=== PATIENT | female | born 1960 | race Caucasian/White ===

== ENCOUNTER → 2016-10-11 | Outpatient (CLI) | payer BC | END | disposition home or self-care (01) | LOC: LAB.O 07:15 | PROVIDERS: ATTEND Internal Medicine Interventional Cardiology | DX: R07.9 Chest pain, unspecified (principal); R06.02 Shortness of breath ==

== ENCOUNTER → 2017-01-18 | Outpatient (CLI) | payer BC | END | disposition home or self-care (01) | LOC: LAB.O 07:14 | PROVIDERS: ATTEND Internal Medicine Interventional Cardiology | DX: E78.5 Hyperlipidemia, unspecified (principal) ==

== ENCOUNTER → 2017-11-28 | Outpatient (CLI) | payer BC | LOC: LAB.O 11:38 | PROVIDERS: ATTEND Nurse Practitioner Family | DX: R60.0 Localized edema (principal); I10 Essential (primary) hypertension ==

== ENCOUNTER → 2017-12-02 | Outpatient (CLI) | payer BC ==
--- NOTE | 2017-12-02 16:51 | US ---
EXAM DESCRIPTION: Renal CLINICAL HISTORY: 57 years Female, Chronic kidney disease COMPARISON: None. TECHNIQUE: Retroperitoneal sonogram was performed to evaluate the kidneys and bladder. FINDINGS: Right kidney Right renal length is 9.8 cm. Renal cortical thickness is normal but echogenicity is increased consistent with chronic renal parenchymal disease. No right renal mass, cyst or shadowing stone. No hydronephrosis. Left kidney Left renal length is 9.9 cm. Renal cortical thickness is normal but there is increased echogenicity consistent with chronic renal parenchymal disease. Sonolucent pyramids are prominent. A small cyst in the central superior left kidney measures 8 mm. This has a benign appearance. No left renal mass or shadowing stone. No hydronephrosis. Urinary bladder Images of the bladder were not obtained for this study. IMPRESSION: Hyperechoic kidneys of normal size with no hydronephrosis. Small left parapelvic renal cyst. Electronically signed by: Emerson Tavarez MD 12/02/2017 4:50 PM CDT
== END ==
LOC: US 13:43
PROVIDERS: ATTEND Internal Medicine Nephrology
DX: N18.4 Chronic kidney disease, stage 4 (severe) (principal); N28.1 Cyst of kidney, acquired

== ENCOUNTER → 2017-12-09 | Outpatient (CLI) | payer BC | LOC: LAB.NP 09:20 | PROVIDERS: ATTEND Internal Medicine Nephrology | DX: N18.4 Chronic kidney disease, stage 4 (severe) (principal) ==

== ENCOUNTER 2017-12-20 10:25 | Inpatient (IN) | payer BC ==
[2017-12-20] MEDS ORDERED: LEVALBUTEROL NEBS 1.25 MG/3 ML VIAL NEB ONE (10:36)
--- NOTE | 2017-12-20 10:38 | ED.PDOC ---
History of Present Illness - General Chief Complaint: Respiratory Problem Stated Complaint: shortness of breath Time Seen by Provider: 12/20/17 10:32 Source: patient Exam Limitations: no limitations - History of Present Illness Comments: Leatha Morgan 57 y/o female stated that she had productive cough the last 2 weeks and nasal congestion. and feels not getting better.Continue to smoke 1ppd and stated had not smoke the last one week.No fever ,no chills but with SOB.Seen primary Md yesterday CXR taken-result unknown to patient. Timing/Duration: week - 2 Cough Quality/Degree: productive cough Possible Cause: occasional episodes Improving Factors: nothing Worsening Factors: nothing Associated Symptoms: shortness of breath Respiratory Risk Factors: other - smoking Allergies/Adverse Reactions: Allergies NO KNOWN ALLERGY Allergy (Verified 12/20/17 10:38) Home Medications: Ambulatory Orders Amlodipine Besylate 10 mg PO BEDTIME 12/20/17 Aripiprazole [Abilify] 10 mg PO DAILY 12/20/17 Atorvastatin Calcium [Lipitor] 20 mg PO BEDTIME 12/20/17 Clonidine HCl 0.2 mg PO PRN 12/20/17 Diltiazem HCl 90 mg PO BID 12/20/17 Duloxetine HCl 90 mg PO DAILY 12/20/17 Losartan Potassium 50 mg PO DAILY 12/20/17 Review of Systems - Review of Systems Constitutional: States: no symptoms reported EENTM: States: nose congestion Respiratory: States: see HPI Cardiology: States: no symptoms reported Gastrointestinal/Abdominal: States: no symptoms reported Genitourinary: States: no symptoms reported Musculoskeletal: States: no symptoms reported Skin: States: no symptoms reported Neurological: States: no symptoms reported Endocrine: States: no symptoms reported Past Medical History (General) - Patient Medical History Hx Hypertension: Yes Hx Other PMH: Yes - chronic kidney disease -followed up by mud mixer- Dr. Akers Surgical History: other - craniotomy for Arnold-Chiari - Vaccination History Immunizations Up to Date: No - Social History Hx Tobacco Use: Yes - cigarrettes Years Tobacco Use: 7 Cigarettes Packs Per Day: 20 Family Medical History - Family History Mother Family History: Unknown Living Status: Unknown Hx Family Asthma: Yes - copd-mom Hx Family Stroke: Yes - dad Physical Exam - Physical Exam General Appearance: Alert, Comfortable, No apparent distress Eye Exam: bilateral normal ENT Exam: normal ENT inspection, hearing grossly normal, pharynx normal, nasal congestion Neck: non-tender, full range of motion, supple, normal inspection, trachea midline Respiratory: chest non-tender, no respiratory distress, accessory muscle use, rales, wheezing, other - speaks in full sentences Cardiovascular/Chest: normal peripheral pulses, regular rate, rhythm, no murmur Gastrointestinal/Abdominal: soft, tenderness - epigasrtium chronic nol peritoneal signs Extremity: no pedal edema, no calf tenderness Neurologic: alert, oriented x 3 Skin Exam: normal color, warm/dry Lymphatic: no adenopathy Progress - Progress Progress: 12/20/17 10:56 12/20/17 10:36 B-TYPE NATRIURETIC PEPTIDE/BNP Stat CARDIAC PANEL,ER Stat LACTIC ACID Stat SVN/Updraft Therapy .ONCE Chest,1 View [RAD] Stat URINALYSIS Stat 12/21/17 09:00 [facility] Daily - Results/Orders Results/Orders: 12/20/17 10:36 SVN/Updraft Therapy .ONCE 12/20/17 11:48 SPUTUM CULTURE Stat 12/20/17 11:50 Sputum PRN 12/20/17 12:05 BLOOD CULTURE Stat 12/20/17 12:28 Azithromycin IV [Zithromax IV] 500 mg Sodium Chloride 0.9% 250Ml [NS 250ml] 250 ml IVPB ONCE 12/21/17 09:00 [facility] Daily Laboratory Results - last 24 hr 12/20/17 12/20/17 12/20/17 10:50 11:38 Unknown WBC 17.8 H RBC 3.36 L Hgb 11.3 L Hct 33.2 L MCV 98.9 MCH 33.6 H MCHC 34.1 RDW 13.3 Plt Count 517 H MPV 7.7 Absolute Neuts (auto) 10.80 H Absolute Lymphs (auto) 5.10 H Absolute Monos (auto) 1.20 H Absolute Eos (auto) 0.40 Absolute Basos (auto) 0.20 H Neutrophils % 60.8 Lymphocytes % 28.9 Monocytes % 6.9 Eosinophils % 2.4 Basophils % 1.0 PT 9.0 INR 0.90 PTT (SP) 23.9 Sodium 133 L Potassium 4.5 Chloride 101 Carbon Dioxide 19 L Anion Gap 17.5 BUN 27 H Creatinine 2.84 H BUN/Creatinine Ratio 9.5 L Random Glucose 191 H Serum Osmolality 276.6 Lactic Acid 1.8 Calcium 8.8 Magnesium 2.3 Creatine Kinase 82 CK-MB (CK-2) 5.3 H* CK-MB (CK-2) % Not Reportable Troponin I 0.03 B-Natriuretic Peptide 154.0 H Urine Color Yellow Urine Appearance Cloudy Urine pH 7.0 Ur Specific [place] 1.020 Urine Protein >=300 H Urine Glucose (UA) 100 H Urine Ketones Negative Urine Blood Large H Urine Nitrite Negative Urine Bilirubin Negative Urine Urobilinogen 0.2 Ur Leukocyte Esterase Negative Urine RBC 30-40 H Urine WBC 0 Ur Epithelial Cells 1-3 Urine Bacteria Rare - EKG/XRAY/CT XRAY: chest - left basilar infiltrate Departure - Departure Clinical Impression: Hypoxemia Pneumonia Qualifiers: Pneumonia type: due to unspecified organism Laterality: left Lung location: lower lobe of lung Qualified Code(s): J18.1 - Lobar pneumonia, unspecified organism Chronic kidney disease Qualifiers: Chronic kidney disease stage: stage 3 (moderate) Qualified Code(s): N18.3 - Chronic kidney disease, stage 3 (moderate) Hematuria Qualifiers: Hematuria type: other microscopic Qualified Code(s): R31.29 - Other microscopic hematuria; R31.2 - Other microscopic hematuria Time of Disposition: 13:08 Disposition: Admit Patient Condition: Fair Departure Forms: Patient Portal Self Enrollment Referrals: Kenna Burch NP [Primary Care Provider] - 1-2 Weeks Home Medications: Ambulatory Orders Amlodipine Besylate 10 mg PO BEDTIME 12/20/17 Aripiprazole [Abilify] 10 mg PO DAILY 12/20/17 Atorvastatin Calcium [Lipitor] 20 mg PO BEDTIME 12/20/17 Clonidine HCl 0.2 mg PO PRN 12/20/17 Diltiazem HCl 90 mg PO BID 12/20/17 Duloxetine HCl 90 mg PO DAILY 12/20/17 Losartan Potassium 50 mg PO DAILY 12/20/17 Decision To Admit - Decistion To Admit Decision to Admit Reason: Admit from ER Decision to Admit Date: 12/20/17 Decision to Admit Time: 13:09 - D/W Fior Hidalgo -SANJAY/Hospitalist
[2017-12-20] MEDS ORDERED: methylPREDNISolone SODIUM SUC 125 MG/2 ML VIAL IV ONE (10:47)
[2017-12-20] MEDS ORDERED: SODIUM CHLORIDE 0.9% 1000ML 1,000 ML IVS ONE ×2 (10:56→16:45)
--- NOTE | 2017-12-20 11:02 | RAD ---
Procedure: XR CHEST 1 VIEW Exam Date: 12/20/2017 Ordering Provider: Manuel Addison Clinical Indication: cough Comparison: None Findings: Cardiomediastinal silhouette is within normal limits. Left basilar subsegmental atelectasis and/or infiltrate. No significant pleural effusion. No pneumothorax. No acute osseous abnormality. Scoliosis. Impression: 1. Left basilar subsegmental atelectasis and/or infiltrate. Electronically signed by: Francesco Smalls MD 12/20/2017 11:01 AM CDT
[2017-12-20] MEDS ORDERED: IPRATROPIUM/ALBUTEROL 3 ML VIAL NEB ONE (11:38)
[2017-12-20] MEDS ORDERED: cefTRIAXone SODIUM 1 GM in SODIUM CHL 0.9% 50ML MIN-BAG+ 50 ML IVPB ONE (12:28)
[2017-12-20] MEDS ORDERED: AZITHROMYCIN IV 500 MG in SODIUM CHLORIDE 0.9% 250ML 250 ML IVPB ONE (12:28)
[2017-12-20] MEDS ORDERED: SODIUM CHL 0.9% 50ML MIN-BAG+ 50 ML IVPB ONE (12:34)
[2017-12-20] MEDS ORDERED: cefTRIAXone SODIUM 1 GM VIAL ONE (12:34)
[2017-12-20] MEDS ORDERED: SODIUM CHLORIDE 0.9% 250ML 250 ML ONE (13:14)
[2017-12-20] MEDS ORDERED: AZITHROMYCIN IV 500 MG VIAL IVPB ONE (13:14)
--- NOTE | 2017-12-20 14:06 | HP ---
SUPERVISING PHYSICIAN: Sebastian Donahue M.D. CHIEF COMPLAINT: Shortness of breath. HISTORY OF PRESENT ILLNESS: This is a 57 year-old female patient who has had approximately a 1 to 2 week history of a cold. She had a runny nose and a productive cough producing white foamy sputum. She has actually been treated as an outpatient over the last week or so. She received a ProAir inhaler. She has also had some adjustments done by Dr. Reza, her facility attendant, on her antihypertensives. Today, it had worsened some and she actually went to try to take a bath, and she became so short of breath that she called 911. While she was short of breath she also had a panic attack and she has a fairly significant history of anxiety and depression. She was brought to the Emergency Room. In the Emergency Room, she presented with a temperature of 98, pulse rate 131, blood pressure 150/88, respiratory rate 24, and O2 sat of 89%. she was placed on oxygen and it came up to 91. She was given a breathing treatment. Lab was done. Her white count was elevated at 17,800 with hemoglobin 11.3 and hematocrit 33.2. Sodium 133, potassium 4.5, chloride 101, carbon dioxide 19, BUN 27, creatinine 2.84. Baseline creatinine is normally 1.66. Glucose 191, lactic acid 1.8. BNP was 154. Magnesium 2.3. Creatinine kinase was 82, CK-MB 5.3 and troponin 0.03. Urinalysis showed greater than 300 urine protein, 100 urine glucose, large amount of urine blood and 30 to 40 urine RBCs. Chest x-ray was done which showed left basilar subsegmental atelectasis and/or infiltrate. Blood cultures were done. Sputum culture was done. She was given some steroids, multiple breathing treatments and started on Rocephin and azithromycin. I was called for hospital admission. PAST MEDICAL HISTORY: 1. Vocal cord paralysis. 2. Hypertension. 3. Depression and anxiety. 4. Chronic renal insufficiency. PAST SURGICAL HISTORY: 1. Craniotomy to relieve some pressure of the brain in 1980. OUTPATIENT MEDICATIONS: 1. Amlodipine. 2. Abilify. 3. Clonidine. 4. Duloxetine. 5. Losartan. ALLERGIES: NO KNOWN DRUG ALLERGIES. SOCIAL HISTORY: She is . She lives in [place]. She has 2 children. She smokes approximately 1 pack of cigarettes daily. She drinks alcohol on a regular basis, usually 3 to 4 beers 3 to 4 times weekly. She denies any illicit drug use. REVIEW OF SYSTEMS: GENERAL: Positive for fatigue. Negative for fever or weight changes. HEENT: Positive for nasal congestion and nasal drainage. Negative for ear pain , vision changes or sore throat. RESPIRATORY: As per History of Present Illness. CARDIAC: Negative for chest pain, tachycardia or palpitations. GASTROINTESTINAL: Negative for nausea, vomiting, diarrhea or constipation. GENITOURINARY: Negative for hematuria, dysuria or polyuria. MUSCULOSKELETAL: Negative for back pain, myalgias, arthralgias. SKIN: Negative for lesions or rashes. NEUROLOGIC: Negative for headaches, dizziness or seizures. PSYCHIATRIC: Positive for depression, anxiety and panic attacks. PHYSICAL EXAMINATION: VITAL SIGNS: She is afebrile, heart rate 128, blood pressure 136/92, respiratory rate 24, O2 sat is 97% on 3 liters nasal cannula. GENERAL: This is a 57 year-old female patient sitting up in her hospital bed. She is in no acute distress. HEENT: Normocephalic and atraumatic. Pupils are equal and reactive. Oropharynx is clear. NECK: Supple without mass. RESPIRATORY: Expiratory wheezing through all lung trejo with a few inspiratory wheezes in the left lung base. She is diminished at the bases. ABDOMEN: Soft, nondistended, non-tender. Bowel sounds are positive. EXTREMITIES: No cyanosis, clubbing or edema. NEUROLOGIC: She is awake, alert and oriented times three. LABORATORY: Labs and films are as per the History of Present Illness. ASSESSMENT: 1. Sepsis due to left lower lobe pneumonia with an admission heart rate of 131, respiratory rate 24, O2 sat 89% and WBCs of 17,800. 2. Acute exacerbation of chronic obstructive pulmonary disease in a chronic smoker. 3. Acute on chronic renal failure. Her baseline creatinine is about 1.9, on admission it was 2.84. 4. Hypertension. 5. Anxiety and depression. PLAN: We will admit the patient to the hospital. I have initiated pneumonia guidelines. I have ordered good pulmonary hygiene as well as a steroid taper. Will continue her on her Rocephin and azithromycin. I have continued her home medications. I will start her on Lovenox for DVT prophylaxis and Protonix for ulcer prophylaxis. I have also given her judicious fluids overnight. I have ordered routine lab and a chest x-ray in the morning. We will continue to monitor closely and follow as needed. Dr. Donahue is the collaborating physician available for consultation. #[id number] [facility]
[2017-12-20] MEDS ORDERED: ONDANSETRON INJ 4 MG/2 ML VIAL IV PRN (16:45)
[2017-12-20] MEDS ORDERED: IV SET AND CAP CHANGE INJ INJ SCH (17:00)
[2017-12-20] MEDS: LEVALBUTEROL NEBS 1.25 MG/3 ML VIAL INH PRN (19:10)
[2017-12-20] MEDS ORDERED: PANTOPRAZOLE SODIUM IV 40 MG VIAL ONE (19:48)
[2017-12-20] MEDS: methylPREDNISolone SODIUM SUC 125 MG/2 ML VIAL IV SCH ×2 (19:54→23:44)
[2017-12-20] MEDS: ENOXAPARIN SODIUM 30 MG/0.3 ML SYG SUBCU SCH (20:41)
[2017-12-20] MEDS: amLODIPine BESYLATE 5 MG TAB PO SCH (20:41)
[2017-12-20] MEDS: IPRATROPIUM/ALBUTEROL 3 ML VIAL INH SCH (20:50)
[2017-12-20] MEDS ORDERED: ENOXAPARIN SODIUM 40 MG/0.4 ML SYG SUBCU SCH (21:00)
[2017-12-20] MEDS: NON-FORMULARY MEDICATION 1 EA MIS (Clonidine Hcl [Clonidine Hcl] 0.2 MG) PO SCH (22:14)
[2017-12-21] MEDS ORDERED: SODIUM CHLORIDE 0.9% 1000ML 1,000 ML IVS ONE (01:56)
[2017-12-21] MEDS: LEVALBUTEROL NEBS 1.25 MG/3 ML VIAL INH PRN ×2 (02:05→11:54)
[2017-12-21] MEDS: methylPREDNISolone SODIUM SUC 125 MG/2 ML VIAL IV SCH ×3 (05:31→17:50)
[2017-12-21] MEDS ORDERED: cloNIDine HCL 0.1 MG TAB ONE (05:38)
[2017-12-21] MEDS: NON-FORMULARY MEDICATION 1 EA MIS (Clonidine Hcl [Clonidine Hcl] 0.2 MG) PO SCH (05:39)
[2017-12-21] MEDS: PANTOPRAZOLE SODIUM IV 40 MG VIAL IV SCH (06:02)
[2017-12-21] MEDS: IPRATROPIUM/ALBUTEROL 3 ML VIAL INH SCH ×4 (08:07→20:54)
--- NOTE | 2017-12-21 08:12 | RAD ---
PROCEDURE: XR CHEST 1 VIEW HISTORY: Pneumonia COMPARISON: 12/20/2017 TECHNIQUE: Single projection of the chest was done. FINDINGS: Levoscoliotic curvature of the thoracic spine is again noted. There is presence of mild right basilar infiltrate/atelectasis . There are no pneumothoraces or pleural effusions. The pulmonary vascularity is normal. The cardiomediastinal silhouette is stable. IMPRESSION: There is presence of mild right basilar infiltrate/atelectasis . Electronically signed by: Villa Nixon MD 12/21/2017 8:11 AM CDT Workstation: [id number]
[2017-12-21] MEDS ORDERED: SODIUM CHLORIDE 0.9% 250ML 250 ML ONE (10:16)
[2017-12-21] MEDS ORDERED: AZITHROMYCIN IV 500 MG VIAL IVPB ONE (10:17)
[2017-12-21] MEDS: AZITHROMYCIN IV 500 MG in SODIUM CHLORIDE 0.9% 250ML 250 ML IVPB SCH (10:29)
[2017-12-21] MEDS: LOSARTAN POTASSIUM 25 MG TAB PO SCH (10:30)
[2017-12-21] MEDS: DULoxetine HCL 30 MG CAP PO SCH (10:31)
[2017-12-21] MEDS: ARIPiprazole 5 MG TAB PO SCH (10:31)
[2017-12-21] MEDS ORDERED: NICOTINE PATCH 14 MG TD ONE (11:09)
[2017-12-21] MEDS ORDERED: methylPREDNISolone SODIUM SUC 125 MG/2 ML VIAL IV ONE (11:43)
[2017-12-21] MEDS ORDERED: methylPREDNISolone SODIUM SUC 40 MG/ML VIAL ONE (11:44)
--- NOTE | 2017-12-21 12:16 | PN ---
DATE: 12/21/17 SUPERVISING PHYSICIAN: Sebastian Donahue M.D. SUBJECTIVE: The patient is lying in bed. She is slightly short of breath and tachypneic. She gets very anxious when she has to get up to go to the bathroom , so she is using a bedside commode at this time. She also is very concerned about her panic attacks, especially when she cannot breathe. She does say the Ativan helps. Otherwise denies chest pain, nausea, vomiting, diarrhea. Overnight she had some tachypnea with an elevated heart rate as well as a panic attack. She required being placed on the BiPAP. She tolerated the BiPAP well and felt that her breathing was better utilizing the BiPAP machine. OBJECTIVE: VITAL SIGNS: Heart rate has been as high as 130 to 160s during a panic attack. At this point it is 103. Respiratory rate runs between 21 and 28. Blood pressure 154/81. O2 sat has been as low as 91% and as high as 96%. RESPIRATORY: Expiratory wheezes throughout with a few scattered rhonchi. She is tachypneic and has to speak in short phrases due to shortness of breath. CARDIAC: Slightly tachycardic rate, regular rhythm. GASTROINTESTINAL: Abdomen is soft, nondistended, non-tender. Bowel sounds are positive. EXTREMITIES: No cyanosis, clubbing or edema. NEUROLOGIC: She is awake, alert and oriented times three. LABORATORY: WBCs have improved slightly to 15,600 with hemoglobin 10.3, hematocrit 31. Blood gas early this morning after being on the BiPAP has a pCO2 of 28, pO2 of 78, ABG of 7.35, O2 sat of 97.6%. Sodium 134, carbon dioxide 18, BUN 30, creatinine 3.05. Her baseline creatinine is 1.9. Random glucose is 216. Preliminary blood cultures are negative to date. Sputum culture is pending. Chest x-ray shows the presence of a mild right basilar infiltrate/atelectasis. All other labs and films have been reviewed via the EMR. ASSESSMENT: 1. Acute respiratory failure secondary to bilateral pneumonia and exacerbation of chronic obstructive pulmonary disease. 2. Sepsis due to left lower lobe pneumonia with an admission heart rate of 131, respiratory rate 24, O2 sat 89% and WBCs of 17,800. 3. Acute exacerbation of chronic obstructive pulmonary disease in a chronic smoker. 4. Acute on chronic renal failure. Her baseline creatinine is about 1.[address] Reza, washing machine mechanic and today it was 3.05. 5. Hypertension. 6. Anxiety and depression. PLAN: We will continue present supportive care. I spoke with Dr. Reza this morning and he agreed with her plan of care, including starting her on IV fluids with bicarbonate in it. I will recheck her lab in the morning as well as a chest x-ray. I am going to slowly taper down her steroids as she still has quite a bit of wheezing. She will continue to utilize the BiPAP as needed. I will give her a nicotine patch. We had a long discussion on tobacco cessation. We will continue to monitor closely and follow as needed. Dr. Donahue is the collaborating physician available for consultation. #[id number] [facility]
[2017-12-21] MEDS ORDERED: cefTRIAXone SODIUM 1 GM VIAL ONE (12:57)
[2017-12-21] MEDS ORDERED: SODIUM CHL 0.9% 50ML MIN-BAG+ 50 ML IVPB ONE (12:57)
[2017-12-21] MEDS: cefTRIAXone SODIUM 1 GM in SODIUM CHL 0.9% 50ML MIN-BAG+ 50 ML IVPB SCH (13:00)
[2017-12-21] MEDS ORDERED: SODIUM BICARBONATE VIAL 50 MEQ/50 ML VIAL ONE ×2 (13:29→21:17)
[2017-12-21] MEDS ORDERED: DEX 5% W/NACL 0.45% 1000ML 1,000 ML IVS ONE ×2 (13:29→21:16)
[2017-12-21] MEDS: NACL 0.45% IVS PRN ×2 (13:37→22:45)
[2017-12-21] MEDS: DEX 5% IVS PRN ×2 (13:37→22:45)
[2017-12-21] MEDS: SODIUM BICARBONATE IVS PRN ×2 (13:37→22:45)
[2017-12-21] MEDS: cloNIDine HCL 0.1 MG TAB PO SCH ×2 (15:55→20:23)
[2017-12-21] MEDS: ENOXAPARIN SODIUM 30 MG/0.3 ML SYG SUBCU SCH (20:23)
[2017-12-21] MEDS: amLODIPine BESYLATE 5 MG TAB PO SCH (20:24)
[2017-12-22] MEDS: SODIUM CHLORIDE 0.9% (FLUSH) 10 ML SYG IV PRN ×3 (00:03→21:22)
[2017-12-22] MEDS: methylPREDNISolone SODIUM SUC 125 MG/2 ML VIAL IV SCH ×2 (00:04→06:05)
[2017-12-22] MEDS: LEVALBUTEROL NEBS 1.25 MG/3 ML VIAL INH PRN (04:05)
[2017-12-22] MEDS: cloNIDine HCL 0.1 MG TAB PO SCH ×3 (06:04→21:44)
[2017-12-22] MEDS: PANTOPRAZOLE SODIUM IV 40 MG VIAL IV SCH (06:06)
[2017-12-22] MEDS: IPRATROPIUM/ALBUTEROL 3 ML VIAL INH SCH ×4 (07:40→21:04)
--- NOTE | 2017-12-22 07:48 | RAD ---
PROCEDURE: XR Chest, 2 Views CLINICAL INDICATION: The patient is 57 years old and is Female; pna TECHNIQUE: Frontal and lateral views of the chest. COMPARISON: Comparison is made to the prior study dated one day earlier. FINDINGS: LIMITATIONS: The patient is rotated, which can compromise assessment. LUNGS: Persistent RIGHT middle lobe and LEFT lower lobe patchy opacity representing atelectasis vs. pneumonia. Pulmonary vascularity is within normal limits. PLEURAL SPACE: There is NO pneumothorax. There are no pleural effusions noted. HEART: The heart size is mildly enlarged MEDIASTINUM: The mediastinal contour is unremarkable. BONES/JOINTS: No acute abnormality. TUBES, LINES AND DEVICES: There are electrocardiogram leads present. IMPRESSION: Persistent RIGHT middle lobe and LEFT lower lobe patchy opacity representing atelectasis vs. pneumonia. Electronically signed by: Zion Medina MD 12/22/2017 7:46 AM CDT
[2017-12-22] MEDS ORDERED: AZITHROMYCIN IV 500 MG VIAL IVPB ONE (09:08)
[2017-12-22] MEDS ORDERED: SODIUM CHLORIDE 0.9% 250ML 250 ML ONE (09:08)
[2017-12-22] MEDS: DULoxetine HCL 30 MG CAP PO SCH (09:24)
[2017-12-22] MEDS: LOSARTAN POTASSIUM 25 MG TAB PO SCH (09:24)
[2017-12-22] MEDS: AZITHROMYCIN IV 500 MG in SODIUM CHLORIDE 0.9% 250ML 250 ML IVPB SCH (09:24)
[2017-12-22] MEDS: ARIPiprazole 5 MG TAB PO SCH (09:24)
[2017-12-22] MEDS ORDERED: SODIUM CHL 0.9% 50ML MIN-BAG+ 50 ML IVPB ONE (12:20)
[2017-12-22] MEDS ORDERED: cefTRIAXone SODIUM 1 GM VIAL ONE (12:20)
[2017-12-22] MEDS: cefTRIAXone SODIUM 1 GM in SODIUM CHL 0.9% 50ML MIN-BAG+ 50 ML IVPB SCH (12:24)
[2017-12-22] MEDS ORDERED: methylPREDNISolone SODIUM SUC 40 MG/ML VIAL ONE ×2 (14:22→19:46)
[2017-12-22] MEDS: methylPREDNISolone SODIUM SUC 40 MG/ML VIAL IV SCH ×2 (14:31→21:22)
[2017-12-22] MEDS: LORazepam 0.5 MG TAB PO PRN ×2 (14:53→22:06)
--- NOTE | 2017-12-22 16:44 | PN ---
DATE: 12/22/17 SUPERVISING PHYSICIAN: Sebastian Donahue M.D. SUBJECTIVE: The patient is sitting up in bed. She says her breathing has improved greatly. She only required Ativan several times in the last 24 hours as her breathing has improved so much she is no longer having the panic attacks. She is feeling better but coughing quite a bit, continues to cough up clearish-white sputum. She denies chest pain, nausea, vomiting, diarrhea. OBJECTIVE: VITAL SIGNS: Temperature 98.8. Heart rate 108. Blood pressure 148/81. Respiratory rate 20. O2 saturation 98% on three liters nasal cannula. RESPIRATORY: Essentially clear to auscultation bilaterally. She is diminished throughout but there is no wheezing. CARDIAC: Slightly tachycardic rate, regular rhythm. GASTROINTESTINAL: Abdomen is soft, nondistended, non-tender. Bowel sounds are positive. NEUROLOGIC: She is awake, alert and oriented times three. LABORATORY: WBCs have gone up to 20.8 with hemoglobin 8.7, hematocrit 26.5. Sodium 132, potassium 3.9, chloride 102, BUN 32, creatinine 3.04, glucose 180, hemoglobin A1c 5.5. AST 99, ALT 101. Serum albumin 2.9. Gram stain is pending. Sputum culture shows contaminated specimen with oropharyngeal substance not termite control service representative of lower respiratory tract. Preliminary blood cultures show no growth at 48 hours. Chest x-ray shows persistent right middle lobe and left lower lobe patchy opacity representing atelectasis versus pneumonia. All other labs and films have been reviewed via the EMR.. ASSESSMENT: 1. Acute respiratory failure secondary to bilateral pneumonia and exacerbation of chronic obstructive pulmonary disease. 2. Sepsis due to left lower lobe pneumonia with an admission heart rate of 131, respiratory rate 24, O2 sat 89% and WBCs of 17,800. 3. Acute exacerbation of chronic obstructive pulmonary disease in a chronic smoker. 4. Acute on chronic renal failure. Her baseline creatinine is about 1.[address] Reza, resource manager, and today it was 3.04. 5. Hypertension. 6. Anxiety and depression. 7. Chronic anemia, most likely of chronic disease. PLAN: We will continue present supportive care. I have added p.o. Ativan and we will discontinue the IV Ativan if she does not need it. I have also done a steroid taper. Continue her present antibiotics. Monitor her cultures. She may need an inhaled corticosteroid, LABA, as well as an anticholinergic inhaler on discharge. We will watch for clinical improvement. I have also ordered lab and an x-ray in the morning. I spoke with Dr. Reza about her renal function and her low hemoglobin and hematocrit. He said to continue her present IV fluids until tomorrow and we will repeat her labs. At that time, we can call him. We will just monitor her hemoglobin as well as her creatinine. Continue her IV fluids as it has bicarbonate in it. We will continue to monitor closely and follow as needed. . #[id number] [facility]
[2017-12-22] MEDS ORDERED: SODIUM BICARBONATE VIAL 50 MEQ/50 ML VIAL ONE (17:34)
[2017-12-22] MEDS ORDERED: DEX 5% W/NACL 0.45% 1000ML 1,000 ML IVS ONE (17:34)
[2017-12-22] MEDS: DEX 5% IVS PRN (17:41)
[2017-12-22] MEDS: NACL 0.45% IVS PRN (17:41)
[2017-12-22] MEDS: SODIUM BICARBONATE IVS PRN (17:41)
[2017-12-22] MEDS: ENOXAPARIN SODIUM 30 MG/0.3 ML SYG SUBCU SCH (21:22)
[2017-12-22] MEDS: amLODIPine BESYLATE 5 MG TAB PO SCH (21:22)
[2017-12-22] MEDS ORDERED: ALPRAZolam 0.5 MG TAB ONE (22:02)
[2017-12-23] MEDS: LEVALBUTEROL NEBS 1.25 MG/3 ML VIAL INH PRN (05:05)
[2017-12-23] MEDS: methylPREDNISolone SODIUM SUC 40 MG/ML VIAL IV SCH (06:08)
[2017-12-23] MEDS: cloNIDine HCL 0.1 MG TAB PO SCH ×3 (06:08→21:41)
[2017-12-23] MEDS: PANTOPRAZOLE SODIUM IV 40 MG VIAL IV SCH (06:08)
[2017-12-23] MEDS: SODIUM CHLORIDE 0.9% (FLUSH) 10 ML SYG IV PRN (06:08)
[2017-12-23] MEDS: methylPREDNISolone SODIUM SUC 125 MG/2 ML VIAL IV SCH (06:30)
[2017-12-23] MEDS ORDERED: SODIUM CHLORIDE 0.9% 250ML 250 ML ONE (07:29)
[2017-12-23] MEDS ORDERED: cefTRIAXone SODIUM 1 GM VIAL ONE (07:30)
[2017-12-23] MEDS ORDERED: SODIUM CHL 0.9% 50ML MIN-BAG+ 50 ML IVPB ONE (07:30)
[2017-12-23] MEDS ORDERED: AZITHROMYCIN IV 500 MG VIAL IVPB ONE (07:31)
[2017-12-23] MEDS: DULoxetine HCL 30 MG CAP PO SCH (08:37)
[2017-12-23] MEDS: LOSARTAN POTASSIUM 25 MG TAB PO SCH (08:37)
[2017-12-23] MEDS: LORazepam 0.5 MG TAB PO PRN ×3 (08:39→21:42)
[2017-12-23] MEDS: IPRATROPIUM/ALBUTEROL 3 ML VIAL INH SCH ×4 (08:45→20:27)
[2017-12-23] MEDS: ARIPiprazole 5 MG TAB PO SCH (10:00)
[2017-12-23] MEDS: AZITHROMYCIN IV 500 MG in SODIUM CHLORIDE 0.9% 250ML 250 ML IVPB SCH (10:26)
[2017-12-23] MEDS: cefTRIAXone SODIUM 1 GM in SODIUM CHL 0.9% 50ML MIN-BAG+ 50 ML IVPB SCH (12:22)
[2017-12-23] MEDS ORDERED: levoFLOXacin 500 MG TAB ONE (15:36)
[2017-12-23] MEDS: amLODIPine BESYLATE 5 MG TAB PO SCH (20:44)
[2017-12-23] MEDS: ENOXAPARIN SODIUM 30 MG/0.3 ML SYG SUBCU SCH (20:45)
--- NOTE | 2017-12-23 20:45 | PN ---
DATE: 12/23/17 SUPERVISING PHYSICIAN: Sebastian Donahue M.D. SUBJECTIVE: The patient reports that she is much improved since admission. She still has some anxiety that seems to be exacerbated by her breathing treatments but has been controlled with Ativan. She has had continued elevation of blood pressure but responds well to Clonidine and has had no other complaints of increasing shortness of breath, chest pains, nausea, vomiting or diarrhea. OBJECTIVE: VITAL SIGNS: She is afebrile with a temperature of 98.3, pulse 95, blood pressure 123/83, respirations 22, satting 97% on nasal cannula at rest on 2 liters. I's and O's show a negative balance of 147 with 1220 in, 1375 out. She has had 1 bowel movement. Weight is 64.0 kg. GENERAL: The patient is sitting in bed resting comfortably. Appears to be in no acute distress. Very pleasant, alert. CHEST: Lung sounds continue to be diminished bilaterally with no obvious wheezing. There is a notable rhonchi heard on the left lateral aspect compared to the right. HEART: Regular rate and rhythm. ABDOMEN: Soft, nondistended. Positive bowel sounds. NEUROLOGIC: She is alert and oriented times three. LABORATORY: White count is trending down to 13,700 compared to 20,800 the previous 24 hours. Hemoglobin 8.7, hematocrit 25.7 which appears to be stable. RBC indices indicate a normocytic/hyperchromic presentation with platelet count 254,000. Differential continues to show a left shift. No bands noted. Chemistries showed sodium 133 which is trending up and showing to be fairly stable. BUN was down to 31, creatinine has shown some slight improvement down to 2.8, calcium 8.6. Liver functions show continued elevated AST and ALT that are showing trending to baseline with an AST of 62, ALT at 93. MICROBIOLOGY: Blood cultures remain negative after 3 days. Sputum culture showed on the 6th the specimen indicated oropharyngeal contamination and was not cultured. RADIOLOGY: No repeat chest x-ray today. ASSESSMENT: 1. Acute respiratory failure secondary to bilateral pneumonia and exacerbation of chronic obstructive pulmonary disease, resolving with aggressive bronchial hygiene and antibiotics. 2. Sepsis due to left lower lobe pneumonia with an admission heart rate of 133, respiratory rate 24, satting 89% and leukocytosis of 17,800 now showing improvement with initiation of fluids and antibiotics. 3. Acute exacerbation of chronic obstructive pulmonary disease in a chronic smoker secondary to bilateral pneumonia community acquired, improving with IV corticosteroids and parenteral antibiotics. 4. Acute on chronic renal failure with a baseline creatinine noted to be at 1.[address] Reza, residential carpet installer with levels showing a trend down having responded to sodium bicarbonate administration. 5. Hypertension, chronic followed by Dr. Reza. 6. Anxiety and depression requiring Benzodiazepines. 7. Chronic anemia, most likely of chronic disease state due to chronic renal failure without any evidence of acute loss. PLAN: At this point the patient is showing stability and will be able to hopefully transition to p.o. medications tomorrow and discharge home to continue with outpatient management. I will discontinue her Solu-Medrol today and will start her on p.o. medication in the morning should she not show any significant rebound or worsening of her clinical condition. She will need a taper dose which I have already ordered 10 mg tablets to taper over a 10 day period. She will also need to continue antibiotics with Cefdinir and I have sent her a prescription for Albuterol inhaler as well as nebulizers. She will probably need to be on a long-acting medications for COPD maintenance likely in the form of Advair or long-acting beta 2 agonist and corticosteroid or Breo, yet to be determined at discharge. Most likely will discharge with a sample of either Advair or Breo to be followed-up in the outpatient setting for residential management. I did talk to Dr. Reza this morning. He was very happy with her response in the last 24 hours to the sodium bicarbonate infusion and recommended that we saline lock her today and discharge in the morning if she continues to show improvement and stability, and to followup with him in clinic on Saturday. Will continue to monitor the patient closely until discharge and again hopefully will discharge in the morning. I have sent her prescriptions except for either the Breo or Advair to [facility] anticipating discharge. #[id number] [facility]
[2017-12-24] MEDS: LORazepam 0.5 MG TAB PO PRN (04:30)
[2017-12-24] MEDS: cloNIDine HCL 0.1 MG TAB PO SCH (06:07)
[2017-12-24] MEDS: PANTOPRAZOLE SODIUM IV 40 MG VIAL IV SCH ×2 (06:07→06:19)
[2017-12-24] MEDS: SODIUM CHLORIDE 0.9% (FLUSH) 10 ML SYG IV PRN (06:08)
[2017-12-24] MEDS ORDERED: SODIUM CHLORIDE 0.9% 250ML 0 ML ONE (06:58)
[2017-12-24] MEDS ORDERED: predniSONE 20 MG TAB ONE (06:59)
[2017-12-24] MEDS ORDERED: AZITHROMYCIN IV 500 MG VIAL IVPB ONE (06:59)
--- NOTE | 2017-12-24 07:16 | RAD ---
Procedure: XR CHEST 2 VIEWS Exam Date: 12/24/2017 Ordering Provider: Hank Elias NP Clinical Indication: pneumonia Comparison: 12/22/2017 Findings: Cardiomediastinal silhouette is within normal limits. Right middle and left lower lobe atelectasis and/or infiltrate is not significantly changed from prior. No significant pleural effusion. No pneumothorax. No acute osseous abnormality. Scoliosis. Impression: 1. Right middle and left lower lobe atelectasis and/or infiltrate is not significantly changed from prior. Electronically signed by: Francesco Smalls MD 12/24/2017 7:15 AM CDT
[2017-12-24] MEDS: DULoxetine HCL 30 MG CAP PO SCH (08:19)
[2017-12-24] MEDS: LOSARTAN POTASSIUM 25 MG TAB PO SCH (08:20)
[2017-12-24] MEDS: ARIPiprazole 5 MG TAB PO SCH (08:20)
[2017-12-24] MEDS: IPRATROPIUM/ALBUTEROL 3 ML VIAL INH SCH (08:44)
[2017-12-24] MEDS ORDERED: predniSONE 20 MG TAB PO SCH (09:00)
[2017-12-24 09:11] VITALS: BP 138/84; TEMP 98.6; O2SAT 92
[2017-12-24] MEDS: AZITHROMYCIN IV 500 MG in SODIUM CHLORIDE 0.9% 250ML 250 ML IVPB SCH (10:04)
--- NOTE | 2017-12-29 16:00 | DS ---
SUPERVISING PHYSICIAN: Sebastian Donahue MD ADMISSION DIAGNOSES: 1. Sepsis due to left lower lobe pneumonia. 2. Acute exacerbation of chronic obstructive pulmonary disease in a chronic smoker. 3. Acute on chronic renal failure. 4. Hypertension. 5. Anxiety and depression. DISCHARGE DIAGNOSES: 1. Acute respiratory failure secondary to bilateral pneumonia likely community acquired with exacerbation of chronic obstructive pulmonary disease, resolving with aggressive bronchial hygiene and antibiotics. 2. Sepsis secondary to left lower lobe pneumonia with an admission heart rate of 133, respiratory rate 24, satting 89% and leukocytosis of 17,800 showing improvement with initiation of fluids and antibiotics. 3. Acute exacerbation of chronic obstructive pulmonary disease in a chronic smoker secondary to bilateral pneumonia improved with IV corticosteroids and parenteral antibiotics. 4. Acute on chronic renal failure with a baseline creatinine at 1.[address] 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 5. Hypertension, chronic followed by Dr. Reza. 6. Anxiety and depression requiring Benzodiazepines. 7. Chronic anemia, most likely of chronic disease state due to chronic renal failure without any evidence of acute loss. 8. Microhematuria likely secondary to ongoing chronic renal failure. REASON FOR HOSPITALIZATION: This is a 57 year-old female patient who has approximately a 1 to 2 week history of a cold. She had a runny nose and a productive cough producing foamy sputum. She noted she was treated as an outpatient over the week before and received a ProAir inhaler. She has also had some adjustments done by Dr. Reza, her advertising sales manager, on her hypertensive medication. . On date of admission, 12/20/17, it had worsened some and she actually went to try to take a bath, and became short of breath and called 911. While she was short of breath she also had a panic attack and she has a fairly significant history of anxiety and depression. She was brought to the Emergency Room where she presented with a temperature of 98, pulse rate 131, blood pressure 150/88, respiratory rate 24, and O2 saturation of 89%. she was placed on oxygen and it came up to 91%.. She was given a breathing treatment. Labs were done. Her white count was noted to be elevated at 17,800 with hemoglobin 11.3 and hematocrit 33.2. Sodium 133, potassium 4.5, chloride 101, carbon dioxide 19, BUN 27, creatinine 2.84. Baseline creatinine is normally 1.66. Troponin 0.03. BNP 154, lactic acid 1.8. Chest x-ray was done showing left basilar subsegmental atelectasis and/or infiltrate. Blood cultures were done. Sputum culture was collected. She was given steroids, multiple breathing treatments and started on Rocephin and azithromycin and admitted to the medical/surgical floor in stable condition. . LABORATORY: Initial white count was 17,800, went up to a maximum of 20,800 and was showing a decline but due to steroids was staying elevated at 15,500. Hemoglobin and hematocrit were stable at 9.9 and 30.4. Platelet count was at 296,000. Differential did show a left shift initially with bands at 10%. Coagulation studies showed a PT of 9, PTT of 23.9. Blood gas analysis initially showed pH of 7.34 with a P0 2 of 73, PC02 of 28, bicarb 15, saturation 98%. Repeat analysis on 12/21 the morning after admission showed a normal pH of 7.35 with P02 of 28, PC02 of 78, saturation 95% on nasal cannula at 2 liters. Chemistries on admission showed a sodium of 133 which remained persistently low but normalized prior to discharge to 135. Potassium normal on admission at 4.5, was slightly low at 3.5 on discharge. Creatinine was elevated initially on admission to 2.84, went to a maximum of 3.05, has returned to baseline today at 2.24 at discharge. Lactic 1.8 on admission. Blood sugars range between 81 and 216. She had a troponin of 0.03 on admission, slightly elevated CKMB at 5.3 with CK normal at 82. BNP slightly elevated on admission at 154. Liver functions showed elevation with AST of 99, returned to baseline at 62 prior to discharge. ALT was at 101 and returning to baseline at 93 on discharge. Urinalysis showed greater than 300 protein, 100 of glucose, large amount of blood with microscopic revealing 30 to 40 RBCs, no WBCs, rare bacteria. RADIOLOGY: Initial chest x-ray in the Emergency Department showed left basilar subsegmental atelectasis and/or infiltrate. She had multiple x-rays on the morning of discharge. Last x-ray, 2-view chest, per radiology interpretation showed right middle left lower lobe atelectasis and/or infiltrate, not significantly changed from previous exams. HOSPITAL COURSE: Ms. Morgan was admitted on 12/20/17 for exacerbation of chronic obstructive pulmonary disease with pneumonia as well as hypertension. She was started on aggressive pulmonary hygiene along with antibiotics to include azithromycin and Rocephin. She showed good response to treatment, required initiation of Solu-Medrol which was slowly tapered down to a p.o. dose to go home on and on the morning of discharge she was showing to be stable in regards to exacerbation of chronic obstructive pulmonary disease enough to follow with outpatient treatment plan. Her blood pressures did show elevation and on the morning of discharge her blood pressure was 138/84 and was showing to be stable. She did receive an infusion of sodium bicarbonate over 48 hours along with a consultation with Dr. Reza via telephone in regards to treatment of her renal failure which she did show stabilization and improvement in her renal function prior to discharge. She required some Ativan for anxiety attacks and again was showing to be clinically stable enough to be discharged to continue with outpatient management. PLAN: Ms. Morgan was discharged on 12/24/[address] Reza in regards to her hypertension and renal function on Saturday after discharge as well as Michelle Carter or Dr. Ricks as needed. She was encouraged to stop smoking. She was to resume home medications as instructed and return to the hospital should she have any concerning symptoms. Discharge diet was diet as tolerated. Activities: Increase as tolerated. Discharge Medications: 1. Albuterol inhaler one puff inhaled every 4 hours as needed, one inhaler. 2. Albuterol sulfate nebulizers, 2.5 mg inhaled every 4 hours as needed, #30. 3. Omnicef 300 mg twice a day, #10. 4. Breo Ellipta one puff inhaled daily, #1 inhaler, samples provided. 5. Prednisone tapering dose, 10 mg tablets, 40 mg x3 days, 30 mg x3 days, 20 mg x3 days and 10 mg x3 days. Discharge condition was stable and improved. #[id number] [facility]
== END 2017-12-24 10:05 | disposition home or self-care (01) | DRG 871 ==
LOC: ER 10:25 → MS 14:04
PROVIDERS: ADMIT Nurse Practitioner Acute Care; ATTEND Nurse Practitioner Family
DX: A41.9 Sepsis, unspecified organism (principal); J18.9 Pneumonia, unspecified organism; J44.1 Chronic obstructive pulmonary disease with (acute) exacerbation; J44.0 Chronic obstructive pulmonary disease with (acute) lower respiratory infection; N17.9 Acute kidney failure, unspecified; J96.00 Acute respiratory failure, unspecified whether with hypoxia or hypercapnia; J98.11 Atelectasis; F17.210 Nicotine dependence, cigarettes, uncomplicated; N18.9 Chronic kidney disease, unspecified; I12.9 Hypertensive chronic kidney disease with stage 1 through stage 4 chronic kidney disease, or unspecified chronic kidney disease; F41.0 Panic disorder [episodic paroxysmal anxiety]; F32.9 Major depressive disorder, single episode, unspecified; D63.1 Anemia in chronic kidney disease; R31.29 Other microscopic hematuria; J38.00 Paralysis of vocal cords and larynx, unspecified; F10.10 Alcohol abuse, uncomplicated

== ENCOUNTER → 2018-05-15 | Outpatient (CLI) | payer BC | LOC: LAB.O 10:18 | PROVIDERS: ATTEND Internal Medicine Nephrology | DX: I77.6 Arteritis, unspecified (principal) ==

== ENCOUNTER → 2018-08-26 | Outpatient (CLI) | payer BC | LOC: LAB.O 08:54 | PROVIDERS: ATTEND Student in an Organized Health Care Education/Training Program | DX: N17.9 Acute kidney failure, unspecified (principal); I10 Essential (primary) hypertension; E87.8 Other disorders of electrolyte and fluid balance, not elsewhere classified; N39.0 Urinary tract infection, site not specified ==

== ENCOUNTER → 2018-09-25 | Outpatient (CLI) | payer BC ==
--- NOTE | 2018-09-26 14:31 | MAM ---
EXAM DESCRIPTION: 3D Screening BILATERAL : Digital Mammography. CLINICAL HISTORY: 58 years Female SCREEN . No complaints. No personal or family history of breast cancer. Childbirth. Postmenopausal 5+ years. No HRT. Lifetime risk of developing breast cancer (Tyrer-Cuzick model)(%): 10.5. Patient scheduled to have transplant surgery. COMPARISON: Baseline study at this facility. No prior reports available. TECHNIQUE: Bilateral CC and MLO projection full-field images, digital tomosynthesis mammographic technique. Bilateral digital 2-D full-field MLO images. CAD not available for tomosynthesis or 2-D images. Positioning and compression was limited due to location of dialysis catheter in the region of the sternum. FINDINGS: The breast parenchymal density pattern is: Heterogeneously dense breast tissue, which may obscure small masses. No nipple retraction. Bilateral coarse and solitary microcalcifications. Mass which appears to be mostly smooth bordered and measuring approximately 12 mm in diameter located at the 6:00 position of the subareolar right breast. 5 mm nodule approximately 2 cm from the left nipple at the 5:00 position. Not associated with microcalcifications. Bilateral periareolar skin thickening which may continue into the inferior breast bilaterally. IMPRESSION: BI-RADS CATEGORY: 0 - INCOMPLETE- Need additional imaging evaluation. FOLLOW-UP: Recall for additional imaging: Bilateral targeted breast ultrasound of the regions of interest abutting the bilateral. Nipples. Written communication concerning the IMPRESSION and Follow-up, will be mailed to the patient and referring health care provider. Electronically signed by: Declan Beck MD 09/26/2018 2:29 PM CDT
== END ==
LOC: MAMMO 12:00
PROVIDERS: ATTEND Nurse Practitioner Family
DX: Z12.31 Encounter for screening mammogram for malignant neoplasm of breast (principal)

== ENCOUNTER → 2018-10-22 | Outpatient (CLI) | payer BC ==
--- NOTE | 2018-10-22 14:44 | US ---
EXAM DESCRIPTION: Breast,Bilateral: Ultrasound CLINICAL HISTORY: 58 yearsFemaleabnormal mammo retroareolar mass density bilaterally on screening study Lifetime risk of developing breast cancer (Tyrer-Cuzick model)(%): Not calculated COMPARISON: Bilateral screening digital breast tomosynthesis 09/25/2018. TECHNIQUE: Transcutaneous scanning of the bilateral breasts, retroareolar regions, utilizing fuentes-scale and Doppler modes. Scanning performed by the anaesthesiologist ; observation by Dr. Beck. FINDINGS: Ultrasound: Retroareolar right breast with a hypoechoic homogeneous mass with circumscribed and small lobulations or projections from the margin. Directly behind right nipple. Wider than tall orientation. Posterior acoustic enhancement. Dimensions are 1.2 x0.9 x 1.5 cm. The mass is not vascular. More likely a fibroadenoma than a malignancy, but there is low risk of malignancy. Not associated with distinct cyst, large calcifications, or parenchymal edema. No overlying skin changes. Scanning of the retroareolar left breast. Heterogeneous fibroglandular and fatty echotextures. No dominant solid mass or distinct cyst. No parenchymal edema or large calcifications. No overlying skin changes. IMPRESSION: BI-RADS CATEGORY 4: SUSPICIOUS. SUB-CATEGORY 4A - LOW SUSPICION FOR MALIGNANCY. Surgical consultation and tissue diagnosis should be considered, if there are no clinical contraindications. The FINDINGS and FOLLOW-UP plan were reviewed in person with the patient following the examination. Written communication explaining the IMPRESSION and FOLLOW-UP will be mailed to the patient and referring care provider. CRITICAL COMMUNICATION: The critical value was discussed directly by phone with GERTRUDE Cardenas, at approximately 1345 hours, on 10/22/2018. Electronically signed by: Declan Beck MD 10/22/2018 2:42 PM CDT
== END ==
LOC: MAMMO 12:30
PROVIDERS: ATTEND Nurse Practitioner Family
DX: R92.8 Other abnormal and inconclusive findings on diagnostic imaging of breast (principal)

== ENCOUNTER → 2018-10-30 | Outpatient (CLI) | payer BC ==
--- NOTE | 2018-10-30 09:52 | OP ---
DATE OF PROCEDURE: 10/30/18 PREOPERATIVE DIAGNOSIS: 1. Abnormal right mammogram. POSTOPERATIVE DIAGNOSIS: 1. Abnormal right mammogram. PROCEDURE: 1. Sonographically guided aspiration of right breast cyst. SURGEON: Vijay Marino MD. FLAT CUTTER: None. ANESTHESIA: Local infiltration of 1% lidocaine. INDICATION: The patient is a 58-year-old chronic renal failure female who on routine mammography was found to have a retroareolar mass on her right breast. It was uncertain as to whether it was cystic or solid. She was brought to the Surgical Suite today for sonographic aspiration and/or biopsy after the risks, benefits and alternatives to the procedure were discussed and accepted. FINDINGS: Aspiration of 1.5 mL of thick, blood-tinged fluid was obtained. It was creamy. It was sent for both cytology and culture. PROCEDURE: After the patient was placed in the supine position on the ultrasound table, she was examined using the ultrasound device. The lesion was identified. The breast medial to the ultrasound probe was prepped with Betadine and draped. Local infiltration of anesthesia was obtained with 1% lidocaine in the skin and in the tissue between the insertion site and the lesion. The 25- gauge needle was then withdrawn and an 18-gauge needle with a new syringe was introduced and fluid was aspirated as noted. On ultrasound, the lesion essentially resolved. The fluid was sent for cytology and culture. The patient tolerated the procedure well. There was no blood loss. A sterile pressure dressing was applied. The patient was discharged home. #[id number] [facility]
--- NOTE | 2018-10-30 11:52 | US ---
EXAM DESCRIPTION: Biopsy/Needle Guidance: Ultrasound. CLINICAL HISTORY: 58 years Female Unspecified lump in right breast, subareolar COMPARISON: Diagnostic ultrasound of the bilateral breast on 10/22/2018. TECHNIQUE: The procedure was performed by Dr. Marino. Repeat ultrasound localized oval hypoechoic lesion at the retroareolar position of the right breast . Sterile preparation. Sterile ultrasound guidance during needle passes. FINDINGS: The lesion is larger since the previous ultrasound. The lesion Contained thick fluid upon aspiration. Significant reduction in size after aspiration. No core biopsies were obtained. Cytology and culture pending. IMPRESSION: Successful ultrasound-guided aspiration of right breast retroareolar lesion. Adequate fluid samples were obtained. Pathology examination at remote facility, results pending. Electronically signed by: Declan Beck MD 10/30/2018 11:50 AM CDT
== END ==
LOC: US 08:30
PROVIDERS: ATTEND Surgery
DX: N63.41 Unspecified lump in right breast, subareolar (principal)

== ENCOUNTER → 2018-11-06 | Outpatient (CLI) | payer BC | LOC: LAB.O 09:17 | PROVIDERS: ATTEND Internal Medicine Nephrology | DX: E09.9 Drug or chemical induced diabetes mellitus without complications (principal); D63.1 Anemia in chronic kidney disease ==

== ENCOUNTER → 2019-11-09 | Outpatient (CLI) | payer MEDICARE, BC ==
--- NOTE | 2019-11-10 17:02 | MAM ---
EXAM DESCRIPTION: 3D Diagnostic, Bilateral (accession [id number]), Breast,Right (accession [id number]): Ultrasound CLINICAL HISTORY: 59 yearsFemaleCYST/MASS OF RIGHT BREAST following probably benign lesion in the right breast. Six-month follow-up. COMPARISON: Right breast ultrasound October 2018, and April 2019. Bilateral screening digital breast tomosynthesis September 2018. Diagnostic right breast ultrasound April 2019. TECHNIQUE: Bilateral LM, CC, and MLO projection full-field images, digital tomosynthesis technique. Bilateral 2-D digital full-field images: LM, CC, and MLO projections. CAD available for 2-D images.. Transcutaneous scanning of the right breast utilizing fuentes-scale and Doppler modes. Scanning performed by the front desk receptionist ; observation by Dr. Beck. FINDINGS: The breast parenchymal density pattern is: Scattered areas of fibroglandular density. No skin thickening or nipple retraction bilateral coarse calcifications. Solitary microcalcifications. Intramammary lymph nodes anterior medial right breast. Retroareolar mass again noted right breast and stable in size. No new focal, stellate mass or density, focal asymmetry , and no suspicious microcalcifications bilaterally. Ultrasound: Scanning retroareolar right breast. Posterior circumscribed mass with lobulated echogenicity in the base in the right retroareolar breast. Anechoic with posterior acoustic enhancement and wider than tall orientation. Dimensions are 1.1 x 1.0 cm. Normal vascularity. On the prior study in April, the cystic mass measuring 1.3 cm. Otherwise stable in appearance. IMPRESSION: BI-RADS CATEGORY: 3 - PROBABLY BENIGN. RECOMMENDATIONS: FOLLOW-UP: Short interval (6-month) diagnostic right breast tomosynthesis and directed right breast ultrasound.. The FINDINGS and the FOLLOW-UP plan were reviewed in person with the patient after the examination. Written communication explaining the IMPRESSION and FOLLOW-UP will be mailed to the patient and referring care provider. Electronically signed by: Declan Beck MD 11/10/2019 5:00 PM CDT
== END | disposition home or self-care (01) ==
LOC: MAMMO 11:02
PROVIDERS: ATTEND Nurse Practitioner Family
DX: N60.01 Solitary cyst of right breast (principal)
CPT/HCPCS: 76641; 77066; G0279

== ENCOUNTER → 2020-04-22 | Outpatient (CLI) | payer MEDICARE, BC ==
--- NOTE | 2020-04-23 15:57 | US ---
EXAM DESCRIPTION: Abdomen,Complete: Ultrasound. CLINICAL HISTORY: 59 years Female abdominal distension COMPARISON: None Available. TECHNIQUE: Transabdominal scanning: grayscale and Doppler modes. FINDINGS: Gallbladder: normal size, shape, echogenicity; no intraluminal stones or sludge. No fluid around the gallbladder. No wall thickening. 1.9 mm. Non-tender with transducer pressure. Common bile duct: caliber 5.4 mm within normal limits. Liver: Increased echogenicity; contour liver capsule smooth where seen. No fluid around the liver. Intrahepatic biliary ducts normal caliber. Doppler hepatopedal flow and normal caliber portal vein 10 mm.. Long axis right lobe 17.7 cm. Pancreas: normal size and echogenicity. Duct not seen. Complete abdominal aorta: Normal caliber from the proximal segment to the distal bifurcation.. IVC: visualized and normal caliber. Right kidney: long axis measures 8.2 cm; volume tab. Cortical echogenicity increased more than the liver. Prominent renal pyramids. 8 mm cortical thickness.. Lobulated capsule. No echogenic stones; no hydronephrosis. Left kidney: long axis measures 8.3 cm; volume 104.2 mL. Cortical echogenicity increased more than the liver. Prominent renal pyramids. 10 mm cortical thickness. Lobulated capsule. No echogenic stones; no hydronephrosis. Spleen: Normal. No focal lesions.. 11.5 cm long axis. Other: None. IMPRESSION: 1. Steatosis of the liver and mild enlargement. Physiologic ducts and vascularity. Smooth capsule with no ascites. Pancreas is negative. Spleen is unremarkable. 2. Gallbladder and common bile duct are negative. No ascites. Normal caliber of the abdominal aorta and IVC. 3. Bilateral kidneys with thin cortex, cortical echogenicity greater than the liver, and lobulated capsules consistent with clinical history. No stones or hydronephrosis; no perirenal fluid. Electronically signed by: Declan Beck MD 04/23/2020 3:56 PM [facility]
== END ==
LOC: US 11:08
PROVIDERS: ATTEND Nurse Practitioner Family
DX: R14.0 Abdominal distension (gaseous) (principal); K76.0 Fatty (change of) liver, not elsewhere classified; N28.9 Disorder of kidney and ureter, unspecified; Q63.1 Lobulated, fused and horseshoe kidney